=== PATIENT | female | born 1985 | race Caucasian/White ===

== ENCOUNTER 2016-10-24 13:16 | Emergency (ER) | payer MEDICAID ==
[2016-10-24 13:37] VITALS: BP 128/70; PULSE 89; TEMP 98.2; BMI 20.2
--- NOTE | 2016-10-24 13:41 | EDPRACDOC ---
- General Information Chief Complaint: Flu-Like Symptoms Stated Complaint: COUGH/CONGESTION Time Seen by Provider: 10/24/16 13:36 Information Source: Patient Mode Of Arrival: Walk Home Medications: Home Medications Amoxicillin Trihydrate [Amoxicillin] 500 mg PO TID #21 tab 10/24/16 Promethazine Dextromethorphan [Phenergan DM] 5 ml PO Q6 PRN #120 ml 10/24/16 Allergies/Adverse Reactions: Allergies Allergy/AdvReac Type Severity Reaction Status Date / Time ketorolac tromethamine Allergy Severe Hives* Verified 10/24/16 13:37 [From Toradol] tramadol Allergy Severe EYES SWELL Verified 10/24/16 13:37 tramadol HCl [From Ultracet] Allergy Severe DOUBLE Verified 10/24/16 13:37 VISION morphine Allergy Unknown Anaphylaxis Verified 10/24/16 13:37 * - History of Present Illness Onset: 2 weeks HPI: PT COMPLAINS OF COUGH PROD OF GREEN PHLEGM, NASAL CONGESTION, SORE THROAT, FEVER , BODY ACHES X 2 WEEKS. Current Symptoms: Reports: Cough, Earache, Fever, Headache, Nasal Symptoms, Sore Throat, Myalgia Shortness of Breath: None Cough: Reports: Productive, Green Rhinorrhea: Reports: Green Ear Symptoms: Reports: Earache Fever Severity/Quality: Reports: subjective Oral Intake: Normal Urinary Output: Normal Relevant History of: None Associated Signs & Symptoms:: Reports: Cough, Earache, Fever, Headache, Nasal Symptoms, Sore Throat, Myalgia. Denies: Nausea, Vomiting, Diarrhea, Rash, Pain with head movement, AMS ED Past Medical History - History Reviewed Yes Nurses notes reviewed and agree except as marked No Past Medical History: Yes Patient has no past medical history - Patient Medical History GI/ History: Denies: Urinary Tract Infection Psychological History: Denies: Depression Systemic History: Denies: Cancer Surgical History: Reports: Appendectomy, Other (CS) - Social Medical History Smoking Status: Never smoker Social History: Reports: Cocaine Use EDM Review of Systems - Review of Systems Constitutional: Fever. negative: Chills Eyes: negative: Blurred Vision, Double Vision Ears: Pain. negative: Drainage Throat: Pain Nose: Congestion, Discharge Respiratory: Cough. negative: Shortness of Breath, Wheezing Cardiovascular: negative: Chest Pain, Palpitations Gastrointestinal: negative: Diarrhea, Nausea, Pain, Vomiting Genitourinary: negative: Dysuria, Frequency Neurological: Headache. negative: Dizziness, Numbness, Weakness Musculoskeletal: Back Integumentary: No Symptoms Reported - Physical Exam Constitutional: Alert (Awake), No apparent distress Oriented to: Time, Person, Place Last recorded Vital Signs: Last Vital Signs Temp 98.2 F 10/24/16 13:32 Pulse 89 10/24/16 13:32 Resp 20 10/24/16 13:32 BP 128/70 10/24/16 13:32 Pulse Ox 94 10/24/16 13:32 Oxygen Pulse Oxygen Saturation 94 O2 Device Room Air Oxygen Flow Rate Fraction of Inspired Oxygen ( FIO2) - HEENT Head: Normal ( normocephalic) Eye Exam: Normal (PERRL, EOMI, Sclera white) Oropharynx: Red. negative: Tonsillar Hypertrophy Tympanic Membrane: Dull ENT EAC: Normal TMJ: Normal Nose: No Symptoms Reported (septum midline) Neck: Normal (FROM, trachea at midline) - Respiratory/Cardiovascular Respiratory: Normal - CTA (BBS clear to auscultation without adventitious sounds ) Cardiovascular: Normal (RRR without murmur, gallop or rub) - Musculoskeletal Back: Normal (Non-Tender) Extremities: Normal (Normal tone, Pulses 2+ No cyanosis or edema, FROM) - Integumentary Skin: Normal, Warm, Dry Lymphatics: Normal (no adenopathy) - Neurologic Memory Impaired: Normal Motor Function: Normal (Normal tone, Pulses 2+ No cyanosis or edema, FROM) Cranial Nerve: Normal (CN II-X11 intact sensation, strength 5/5) Cerebellar: Normal Mood Description: Normal Perception: Normal - Differential Diagnosis Otitis Media, Pneumonia, Sinusitis, URI Decision Time to Discharge: 13:41 - Departure Disposition: Home Condition: Stable Final Diagnosis: Acute upper respiratory infection Instructions: Upper Respiratory Infection (ED) Education/Counseling Given To: Patient Education/Counseling Given Regarding: Diagnosis, Treatment, Prognosis, Follow Up Referrals: Juan Francisco Chapman PA [Primary Care Provider] - One Week Prescriptions: Amoxicillin Trihydrate [Amoxicillin] 500 mg PO TID #21 tab Promethazine Dextromethorphan [Phenergan DM] 5 ml PO Q6 PRN #120 ml PRN Reason: Cough Additional Instructions: Rest, drink plenty of fluids, use Tylenol every 4 hours and Motrin every 6 hours as needed for pain or fever, return to the ED for any worsening symptoms or concerns.
== END 2016-10-24 13:48 | disposition home or self-care (01) ==
LOC: EDMC 13:16
DX: J06.9 Acute upper respiratory infection, unspecified (principal)
CPT/HCPCS: 99282